=== PATIENT | male | born 1990 | race Caucasian/White ===

== ENCOUNTER 2021-04-06 12:29 | Emergency (ER) | payer MEDICAID ==
[~2021-04-06] VITALS: Ht 182.9 cm; Wt 88.0 kg
[2021-04-06] MEDS ORDERED: BACITRACIN ZINC OINT UDPKT TOP ONE (12:45)
[2021-04-06] MEDS ORDERED: HYDROCODONE/ACETAMINOPHEN 5/325MG TABLET PO ONE (12:45)
[2021-04-06 13:23] VITALS: BP 138/89
[2021-04-06] MEDS ORDERED: LIDOCAINE HCL/PF 1% 10 MG/ML 5ML VIAL INFIL ONE (13:30)
[2021-04-06] MEDS ORDERED: AMOX-494 MT (15:01)
[2021-04-06] MEDS ORDERED: IBUP-2029 PO (15:01)
== END 2021-04-06 15:25 | disposition home or self-care (01) ==
LOC: ER 12:29
DX: S01.511A Laceration without foreign body of lip, initial encounter (principal); W10.8XXA Fall (on) (from) other stairs and steps, initial encounter; Y93.89 Activity, other specified; Y92.018 Other place in single-family (private) house as the place of occurrence of the external cause
CPT/HCPCS: 99283; J3490; Z7610